=== PATIENT | female | born 1965 | race Two or more races ===

== ENCOUNTER 2017-09-24 05:15 | Day surgery (SDC) | payer OTHER ==
[~2017-09-24 05:15] MED LIST: CAPECITABINE150 MG PO; ZANTAC150 M3 PO
== END 2017-09-24 12:00 | disposition home or self-care (01) ==
LOC: CIR.AMB 05:15
DX: N64.1 Fat necrosis of breast (principal); C50.911 Malignant neoplasm of unspecified site of right female breast; Z90.11 Acquired absence of right breast and nipple